=== PATIENT | female | born 1990 | race African-American/Black ===

== ENCOUNTER 2016-08-20 21:35 | Emergency (ER) | payer OTHER ==
--- NOTE | ~2016-08-20 | EKG ---
PATIENT: APOLLO SYLVESTER UNIT #: [id number] Ventricular Rate: 81 BPM Atrial Rate: 81 BPM P-R Interval: 150 ms QRS Duration: 72 ms Q-T Interval: 358 ms QTC Calculation(Bezet): 415 ms P [place]: 35 degrees Calculated R [place]: 18 degrees Calculated T [place]: 9 degrees Diagnosis Line: Normal sinus rhythm Diagnosis Line: Normal ECG Diagnosis Line: When compared with ECG of 06-FEB-2016 12:24, Diagnosis Line: No significant change was found Diagnosis Line: Confirmed by SAMINA LOPEZ MD ([id number]) on Diagnosis Line: 08/22/2016 6:35:12 AM INTERPRETING CAM OSORIO
[~2016-08-20 21:35] MED LIST: METROGEL-VAGINA70 GM VG
== END 2016-08-20 21:50 | disposition home or self-care (01) ==
LOC: CED 21:35
DX: R07.89 Other chest pain (principal); K13.0 Diseases of lips; R06.02 Shortness of breath; J45.909 Unspecified asthma, uncomplicated; F17.200 Nicotine dependence, unspecified, uncomplicated
CPT/HCPCS: 93005; 99283

== ENCOUNTER 2016-09-19 21:19 | Emergency (ER) | payer OTHER ==
[2016-09-19 22:56] LABS: INFLUENZA A NEG (NEG); INFLUENZA B NEG (NEG)
== END 2016-09-20 00:45 | disposition home or self-care (01) ==
LOC: CED 21:19
DX: R07.0 Pain in throat (principal); J45.909 Unspecified asthma, uncomplicated; F17.200 Nicotine dependence, unspecified, uncomplicated; Z79.899 Other long term (current) drug therapy
CPT/HCPCS: 87651; 87804; 99283